=== PATIENT | female | born 1940 | race Two or more races ===

== ENCOUNTER 2019-03-18 05:15 | Day surgery (SDC) | payer OTHER ==
[~2019-03-18 05:15] MED LIST: FOLIC ACID1 MG PO; GABAPENTIN300 MG PO; ZOCOR20 MG PO; [UNRECOGNIZED DRUG - OTHER] PO
== END 2019-03-18 10:55 | disposition home or self-care (01) ==
LOC: CIR.AMB 05:15
DX: D21.11 Benign neoplasm of connective and other soft tissue of right upper limb, including shoulder (principal); Z42.8 Encounter for other plastic and reconstructive surgery following medical procedure or healed injury